=== PATIENT | male | born 1980 | race Caucasian/White ===

== ENCOUNTER 2021-11-27 10:33 | Emergency (ER) | payer SELFPAY ==
[~2021-11-27] VITALS: Ht 182.9 cm; Wt 93.0 kg
[2021-11-27] MEDS ORDERED: SODIUM CHLORIDE 0.9% 1,000 ML IV ONE (13:00)
[2021-11-27 13:39] VITALS: BP 130/80
== END 2021-11-28 13:30 | disposition home or self-care (01) ==
LOC: EDBD → ER 10:54
DX: T50.901A Poisoning by unspecified drugs, medicaments and biological substances, accidental (unintentional), initial encounter (principal); F15.10 Other stimulant abuse, uncomplicated; F11.10 Opioid abuse, uncomplicated; Y92.59 Other trade areas as the place of occurrence of the external cause
CPT/HCPCS: 96360; 99283; J7030

== ENCOUNTER 2021-11-27 23:42 | Emergency (ER) | payer OTHER, MEDICAID ==
[~2021-11-27] VITALS: Ht 172.7 cm; Wt 73.0 kg
[2021-11-28 01:45] LABS: BASOPHILS % 0.9 % (0.0-2.0); EOSINOPHILS % 0.5 % (0.0-5.0); HEMATOCRIT. 42.3 % (42.0-52.0); LYMPHOCYTES % 16.7 % (20.0-50.0); MEAN CORPUSCULAR VOLUME 90.6 fL (80.0-94.0); MEAN PLATELET VOLUME 7.4 fl (7.4-10.4); MONOCYTES % 7.9 % (2.0-8.0); PLATELET 302 x1000/uL (130-400); RED BLOOD CELL COUNT 4.68 mill/uL (4.7-6.1); RED CELL DISTRIBUTION WIDTH 13.7 % (11.6-14.6)
[2021-11-28 01:51] LABS: CHLORIDE 111 mEq/L (98-107)
[2021-11-28 01:56] LABS: ETHANOL BLOOD < 10 mg/dL
[2021-11-28 03:22] LABS: *AMPHETAMINES SCREEN URINE PRESUMTIVE POSITIVE (NEGATIVE)
[2021-11-28 03:23] LABS: *BARBITURATES SCREEN URINE NEGATIVE (NEGATIVE); *BENZODIAZEPINES SCREEN URINE NEGATIVE (NEGATIVE); *COCAINE SCREEN URINE NEGATIVE (NEGATIVE); METHADONE URINE SCREEN NEGATIVE (NEGATIVE); OPIATES URINE SCREEN NEGATIVE (NEGATIVE)
[2021-11-28 03:24] LABS: CANNABINOID URINE SCREEN NEGATIVE (NEGATIVE); PHENCYCLIDINE URINE SCREEN NEGATIVE (NEGATIVE)
[2021-11-28 05:08] VITALS: BP 116/72
== END 2021-11-28 05:12 ==
LOC: EDBD 23:57 → ER 23:57
DX: T50.901A Poisoning by unspecified drugs, medicaments and biological substances, accidental (unintentional), initial encounter (principal); R41.82 Altered mental status, unspecified; F15.10 Other stimulant abuse, uncomplicated; F16.10 Hallucinogen abuse, uncomplicated; Y92.488 Other paved roadways as the place of occurrence of the external cause
CPT/HCPCS: 36415; 80053; 80305; 80320; 85025; 93005; 99291; G0480

== ENCOUNTER 2024-01-07 21:24 | Emergency (ER) | payer SELFPAY ==
[~2024-01-07] VITALS: Ht 172.7 cm; Wt 77.3 kg
[2024-01-07] MEDS ORDERED: CEFAZOLIN SODIUM 2000MG/VIAL IJ ONE (21:45)
[2024-01-07 22:07] VITALS: O2SAT 98
[2024-01-07] MEDS: TETANUS, DIPHTHERIA, PERTUSSIS VAC/PF 0.5ML (>10YR OLD) IM ONE (22:11)
[2024-01-07] MEDS: BACITRACIN ZINC OINT UDPKT TOP ONE (22:43)
[2024-01-07] MEDS: LIDOCAINE HCL/PF 1% 10 MG/ML 5ML VIAL INFIL ONE (22:43)
[2024-01-07] MEDS: SODIUM CHLORIDE 0.9% IV ONE (22:55)
[2024-01-07] MEDS: CEFAZOLIN 2GM/100ML 100 ML IV NR (22:55)
[2024-01-07] MEDS: MORPHINE SULFATE 4 MG/ML INJ (FOR IV/IM USE) IV ONE (22:59)
[2024-01-08] MEDS: SODIUM CHLORIDE 0.9% IV ONE (01:04)
[2024-01-08 01:23] LABS: BG BASE EXCESS 1.2 mmol/L (-2.0-2.0); BG CARBOXYHEMOGLOBIN 0.3 % (0.5-1.5); BG DEOXYHEMOGLOBIN 3.7 % (0.0-5.0); BG FRACTION INSPIRED OXYGEN 21; BG HCO3 ACT 24.6 mmol/L (22.0-26.0); BG METHEMOGLOBIN 0.1 % (0.0-1.5); BG OXYGEN SATURATION 96.3 % (92.0-98.5); BG OXYHEMOGLOBIN 95.9 % (94.0-97.0); BG PCO2 35.1 mmHg (35.0-45.0); BG PH 7.464 (7.350-7.450); BG PO2 84.8 mmHg (75.0-100.0); BG SAMPLE SITE RIGHT RADIAL; BG TOTAL HEMOGLOBIN 12.1 g/dL (12.0-18.0); BG VENT MODE ROOM AIR
[2024-01-08] MEDS: KETOROLAC 30MG/ML VIAL IV NR (03:17)
[2024-01-08 04:11] LABS: CARBON DIOXIDE 27 mEq/L (21-32); CHLORIDE 108 mEq/L (98-107); SODIUM 137 mEq/L (136-145)
[2024-01-08 04:13] LABS: BASOPHILS % 0.4 % (0.0-2.0); EOSINOPHILS % 0.5 % (0.0-5.0); HEMATOCRIT. 33.2 % (42.0-52.0); HEMOGLOBIN. 11.5 g/dL (14.0-18.0); LYMPHOCYTES % 13.3 % (20.0-50.0); MEAN CORPUSCULAR HEMOGLOBIN 31.3 pg (28.0-32.0); MEAN CORPUSCULAR HGB CONC 34.6 g/dL (31.0-37.0); MEAN CORPUSCULAR VOLUME 90.6 fL (80.0-94.0); MEAN PLATELET VOLUME 8.6 fl (7.4-10.4); MONOCYTES % 8.6 % (2.0-8.0); NEUTROPHILS % 77.2 % (40.0-76.0); PLATELET 294 x1000/uL (130-400); RED BLOOD CELL COUNT 3.67 mill/uL (4.7-6.1); RED CELL DISTRIBUTION WIDTH 13.3 % (11.6-14.6); WHITE BLOOD COUNT 7.4 x1000/uL (4.5-11.0)
[2024-01-08 04:16] LABS: CREATININE 0.8 mg/dL (0.6-1.3); GLUCOSE 96 mg/dL (70-105)
[2024-01-08 04:17] LABS: UREA NITROGEN BLOOD 8 mg/dL (9-23)
[2024-01-08 04:57] LABS: POTASSIUM 2.8 mEq/L (3.5-5.1)
[2024-01-08] MEDS ORDERED: POTASSIUM CHLORIDE 20MEQ TABLET SR PO NR (05:00)
[2024-01-08] MEDS ORDERED: HYDR-4001 MT (05:02)
[2024-01-08] MEDS ORDERED: CEPH500T MT (05:02)
[2024-01-08 05:30] VITALS: BP 122/62; PULSE 108; RESP 16; TEMP 99.3
== END 2024-01-08 05:31 | disposition home or self-care (01) ==
LOC: ER 21:24
DX: S61.412A Laceration without foreign body of left hand, initial encounter (principal); F15.90 Other stimulant use, unspecified, uncomplicated; F11.90 Opioid use, unspecified, uncomplicated; X58.XXXA Exposure to other specified factors, initial encounter; Y93.89 Activity, other specified; Y92.89 Other specified places as the place of occurrence of the external cause; Y99.8 Other external cause status
CPT/HCPCS: 73130; 90715; 12002; 90471; 96365; 96366; 96375 ×2; 99285; 80048; 85025; 36415; 82805; 82375; 36600; J0690; J3490; J2270; J7030 ×2; Z7610 ×2; J1885